=== PATIENT | female | born 1955 | race African-American/Black ===

== ENCOUNTER 2016-10-26 08:19 | Emergency (ER) | payer MEDICARE, MEDICAID ==
[~2016-10-26] VITALS: Ht 157.5 cm; Wt 136.1 kg
[2016-10-26] MEDS ORDERED: SODIUM BICARBONATE 8.4% INJ 50ML SYRINGE ONE (08:21)
[2016-10-26 08:22] VITALS: BP 0/0
[2016-10-26] MEDS ORDERED: SODIUM BICARBONATE 8.4 % INJ 50ML VIAL IV ONE (09:30)
== END 2016-10-26 12:09 | disposition expired ==
LOC: ER 08:19
DX: I46.9 Cardiac arrest, cause unspecified (principal); E11.9 Type 2 diabetes mellitus without complications; R41.82 Altered mental status, unspecified
CPT/HCPCS: 31500; 92950; 96374; 99291